=== PATIENT | male | born 1960 | race Caucasian/White ===

== ENCOUNTER → 2025-02-21 12:38 | Outpatient (REF) | payer OTHER, SELFPAY | LOC: RAD 12:38 | PROVIDERS: ATTENDING PHYSICIAN Family Medicine | DX: N20.0 Calculus of kidney (principal); R10.9 Unspecified abdominal pain | CPT/HCPCS: 74018 ==

== ENCOUNTER 2025-06-16 06:31 | Day surgery (SDC) | payer OTHER, SELFPAY ==
[2025-06-14 12:17] VITALS: BMI 32.4
[2025-06-16] VITALS (13 sets, daily range): BP systolic 125–156; BP diastolic 89–105; BMI 32.4
[2025-06-16 11:10] LABS: Glucose - Point of Care 107 mg/dl (70-99)
[2025-06-16] MEDS: NORMOSOL-R/PLASMALYTE-A 1000 IV (11:11)
[2025-06-16 11:17] LABS: Hematocrit 43.3 % (39.0-52.0); Hemoglobin 14.8 g/dL (13.0-18.0); Mean Corp Hgb Conc. 34.2 g/dL (33.0-37.0); Mean Corpuscular Volume 82.6 fL (80.0-94.0); Platelet Count 209 10^3/uL (130-400); Red Cell Dist. Width 13.6 % (11.5-14.5)
[2025-06-16] MEDS: DILAUDID 0.5 MG IV (14:08)
[2025-06-16] MEDS: VALIUM INJECTION 5 MG IV (14:34)
[2025-06-16] MEDS: ROXICODONE 5 MG PO (15:57)
== END 2025-06-16 16:45 | disposition home or self-care (01) ==
LOC: SDS 06:31
PROVIDERS: ATTENDING PHYSICIAN Specialist; FAMILY PHYSICIAN Physician Assistant Medical
DX: N20.0 Calculus of kidney (principal)
CPT/HCPCS: 52356; 74018; 76000; 82962; 85027; 93005